=== PATIENT | male | born 1960 | race Caucasian/White ===

== ENCOUNTER 2021-06-13 14:20 | Emergency (ER) | payer BC ==
[2021-06-13 14:58] LABS: BASO # 0.06 K/mm3 (0.02-0.10); EOS # 0.02 K/mm3 (0.04-0.40); EOS % 0.2 % (0.0-4.0); HEMATOCRIT 45.5 % (42.0-52.0); HEMOGLOBIN 15.8 g/dL (13.5-18.0); LYMPH# 1.42 K/mm3 (1.50-4.00); MEAN CELL VOLUME 86 fl (78-100); MEAN CORPUSCULAR HEMOGLOBIN 30 pg (27-31); MEAN CORPUSCULAR HGB CONC 35 g/dL (33-37); MEAN PLATELET VOLUME 11.2 fl (7.4-10.4); MONO # 0.83 K/mm3 (0.20-0.80); PLATELET COUNT 257 K/mm3 (130-400); RED BLOOD COUNT 5.29 M/mm3 (4.20-5.60); RED CELL DISTRIBUTION WIDTH 12.1 % (11.5-14.5); WHITE BLOOD COUNT 13.2 K/mm3 (4.8-10.8)
[2021-06-13 15:08] LABS: ALBUMIN 4.2 g/dL (3.4-4.8)
[2021-06-13 15:09] LABS: POTASSIUM 4.3 mmol/L (3.5-5.1); SODIUM 139 mmol/L (136-145)
[2021-06-13 15:10] LABS: CALCIUM 9.7 mg/dL (8.3-10.5)
[2021-06-13 15:11] LABS: GLUCOSE 256 mg/dL (75-110); TOTAL PROTEIN 6.7 g/dL (6.2-8.1)
[2021-06-13 15:12] LABS: CARBON DIOXIDE 21 mmol/L (23-31)
[2021-06-13 15:13] LABS: TOTAL BILIRUBIN 0.6 mg/dL (0.2-1.2)
[2021-06-13 15:16] LABS: AST-SGOT 15 U/L (5-34)
[2021-06-13 15:17] LABS: ALT/SGPT 26 U/L (0-55)
[2021-06-13 15:26] LABS: TROPONIN-I < 0.030 ng/mL (<0.030)
[2021-06-13] MEDS ORDERED: LEVEMIR FLEX100 U/ML SQ (15:47)
[2021-06-13] MEDS ORDERED: METFORMIN HYD1000 MG PO (15:48)
[2021-06-13] MEDS ORDERED: OZEMPIC0.25 MG/0. SQ (15:48)
[2021-06-13] MEDS ORDERED: GLIMEPIRIDE2 M1 PO (15:48)
[2021-06-13] MEDS ORDERED: GLYXAMBI1 TA1 PO (15:48)
[2021-06-13] MEDS ORDERED: PIOGLITAZONE HC30 MG PO (15:48)
[2021-06-13] MEDS ORDERED: ASPIRIN E.C. 8181 MG (15:49)
[2021-06-13 17:06] VITALS: BP 169/101
== END 2021-06-13 17:06 | disposition home or self-care (01) ==
LOC: ED 14:20
PROVIDERS: Physician Assistant
DX: R07.89 Other chest pain (principal); R03.0 Elevated blood-pressure reading, without diagnosis of hypertension
CPT/HCPCS: J2060; J2405